=== PATIENT | female | born 1930 | race Caucasian/White ===

== ENCOUNTER 2016-05-03 08:26 | Emergency (ER) | payer MEDICARE, BC ==
[2016-05-03] MEDS ORDERED: SODIUM CHLORIDE 0.9% 500 ML IV STA (08:56)
--- NOTE | 2016-05-03 09:00 | ED ---
General Adult HPI - General Stated complaint: BLOODY DIARRHEA Time Seen by Provider: 05/03/16 08:47 Source: RN notes reviewed - History of Present Illness Initial comments: 85-year-old female presents to the emergency department with a chief complaint of coffee ground like stool. Patient states she's had this since about the first week before Chris. Patient states that is just continued to occur on and off so she was concerned. Patient denies this is the diarrhea is more often since she became even more concerned. Patient states she is on Plavix but does not know blood thinners. Patient denies any history of rectal bleeding. Patient states that she did have colonoscopy about 5 years ago. Patient denies any fever chills with this. Patient states she has cramping in the abdomen prior to the diarrhea-like episode. Patient states when she has the diarrhea she has been nauseous but she is not nauseous any other time. Patient states she was concerned due to the symptoms so she thought that she should be evaluated. Patient denies any recent fever, chills, shortness of breath, chest pain, back pain, vomiting, numbness or tingling, dysuria or hematuria, constipation, headaches or visual changes, or any other current symptoms. - Related Data Home Medications Medication Instructions Recorded Confirmed Levothyroxine Sodium [Synthroid] 175 mcg PO DAILY 09/15/13 05/03/16 Losartan/Hydrochlorothiazide 1 tab PO HS 09/15/13 05/03/16 [Hyzaar 100-12.5 Tablet] Potassium Chloride [Klor-Con 10] 10 meq PO DAILY 09/15/13 05/03/16 amLODIPine BESYLATE [Norvasc] 5 mg PO 09/15/13 05/03/16 quiNINE SULFATE [Qualaquin] 324 mg PO 09/15/13 05/03/16 Clopidogrel Bisulfate [Clopidogrel] 75 mg PO HS 11/18/13 05/03/16 Furosemide [Lasix] 20 mg PO DAILY 11/18/13 05/03/16 Rosuvastatin Calcium [Crestor] 10 mg PO HS 11/18/13 05/03/16 Metoprolol Succinate [Toprol XL] 50 mg PO HS 12/04/14 05/03/16 sitaGLIPtin [Januvia] 100 mg PO DAILY 12/04/14 05/03/16 Aspirin 81 mg PO DAILY 05/03/16 05/03/16 Desoximetasone [Topicort 0.25%] 1 spray TOPICAL DAILY PRN 05/03/16 05/03/16 Dicyclomine [Bentyl] 10 mg PO QID PRN 05/03/16 05/03/16 Fluticasone Nasal [place] [Flonase 1 spray EA NOSTRIL DAILY PRN 05/03/16 05/03/16 Nasal [place]] Glucosamine-Chondr 500-400Mg 1 tab PO DAILY 05/03/16 05/03/16 Multivitamins, Thera [Multivitamin] 1 tab PO DAILY 05/03/16 05/03/16 [place]-3 Fatty Acids/Fish Oil [Fish 4 cap PO DAILY 05/03/16 05/03/16 Oil 1,000 mg Softgel] Ubidecarenone [Co Q-10] 100 mg PO DAILY 05/03/16 05/03/16 Vitamin B Complex 1 cap PO DAILY 05/03/16 05/03/16 Previous Rx's Medication Instructions Recorded Clopidogrel [Plavix] 75 mg PO DAILY tab 12/10/14 Nitroglycerin Sl Tabs [Nitrostat] 0.4 mg SUBLINGUAL Q5M PRN #0 tab 12/10/14 Ciprofloxacin HCl [Cipro] 500 mg PO Q12HR #14 tablet 05/03/16 Allergies Allergy/AdvReac Type Severity Reaction Status Date / Time Iodinated Contrast Media - Allergy Rash/Hives Verified 05/03/16 09:11 Oral and [Iodinated Contrast Media - IV Dye] niacin Allergy Rash/Hives Verified 05/03/16 09:11 codeine AdvReac Intermediate Chest Pain Verified 05/03/16 09:11 atorvastatin AdvReac Unknown Verified 05/03/16 09:11 Review of Systems ROS Statement: Those systems with pertinent positive or pertinent negative responses have been documented in the HPI. ROS Other: All systems not noted in ROS Statement are negative. 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 TIA 08/2013. SOB w/exertion, psoriasis, aortic valve needs to be repaired in future per pt. History of Any Multi-Drug Resistant Organisms: None Reported Past Surgical History: Appendectomy, Cholecystectomy, Heart Catheterization, Hysterectomy, Orthopedic Surgery Additional Past Surgical History / Comment(s): breast biopsy left, rotator cuff right, heart cath 2 weeks ago @[facility] Past Anesthesia/Blood Transfusion Reactions: No Reported Reaction Past Psychological History: No Psychological Hx Reported Smoking Status: Never smoker Past Alcohol Use History: None Reported Past Drug Use History: None Reported - Past Family History Brother(s) Family Medical History: Cancer General Exam - General Exam Comments Initial Comments: General: The patient is awake and alert, in no distress, and does not appear acutely ill. Eye: Pupils are equal, round and reactive to light, extra-ocular movements are intact; there is normal conjunctiva bilaterally. No signs of icterus. Ears, nose, mouth and throat: There are moist mucous membranes and no oral lesions. Neck: The neck is supple, there is no tenderness. Cardiovascular: There is a regular rate and rhythm. with murmur no rub or gallop is appreciated. Respiratory: Lungs are clear to auscultation, respirations are non-labored, breath sounds are equal. No wheezes, stridor, rales, or rhonchi. Gastrointestinal: Soft, non-distended, non-tender abdomen without masses or organomegaly noted. There is no rebound or guarding present. No CVA tenderness. Bowel sounds are unremarkable. Back: There is no tenderness to palpation in the midline. There is no obvious deformity. No rashes noted. Musculoskeletal: Normal ROM, no tenderness, There is no pedal edema. There is no calf tenderness or swelling. Sensation intact. Pulses equal bilaterally 2+. Neurological: CN II-XII intact, There are no obvious motor or sensory deficits. Coordination appears grossly intact. Speech is normal. Skin: Skin is warm and dry and no rashes or lesions are noted. Psychiatric: Cooperative, appropriate mood & affect, normal judgment. Course Vital Signs 05/03/16 05/03/16 09:15 12:15 Temperature 97.2 F L 97.8 F Pulse Rate 74 71 Respiratory 18 16 Rate Blood Pressure 174/77 169/75 O2 Sat by Pulse 96 98 Oximetry Medical Decision Making - Medical Decision Making 85-year-old female presents for coffee ground diarrhea per the history. At this time the patient is fecal occult positive hard patient does not have coffee -ground emesis on physical exam. At this time the patient was unable to provide a stool sample. We did discuss that she has a stable hemoglobin stable vital signs. We did discuss that she can follow up outpatient for this. She was likely will need colonoscopy. We did discuss with Prescription for stool culture as well as a C. diff testing. We discussed that she isn't follow-up with this. We will also give a prescription for Cipro to cover for the typical causes of diarrhea to see if this helps with her symptoms. We discussed this at this after she's collected for stool sample. The patient was informed that should follow up with her doctor this week. We discussed return parameters all her questions. She stated that she understood and she is negative and the plan. Patient will be discharged home. - Lab Data Result diagrams: 05/03/16 09:44 05/03/16 09:44 Lab Results 05/03/16 05/03/16 05/03/16 Range/Units 09:44 09:44 09:44 WBC 11.3 H (3.8-10.6) k/uL RBC 3.84 (3.80-5.40) m/uL Hgb 11.5 (11.4-16.0) gm/dL Hct 35.0 (34.0-46.0) % MCV 91.0 (80.0-100.0) fL MCH 30.0 (25.0-35.0) pg MCHC 32.9 (31.0-37.0) g/dL RDW 14.2 (11.5-15.5) % Plt Count 238 (150-450) k/uL Neutrophils % 80 % Lymphocytes % 10 % Monocytes % 4 % Eosinophils % 2 % Basophils % 0 % Neutrophils # 9.0 H (1.3-7.7) k/uL Lymphocytes # 1.1 (1.0-4.8) k/uL Monocytes # 0.5 (0-1.0) k/uL Eosinophils # 0.3 (0-0.7) k/uL Basophils # 0.0 (0-0.2) k/uL PT (9.0-12.0) sec INR (<1.1) APTT (22.0-30.0) sec Sodium 138 (137-145) mmol/L Potassium 4.1 (3.5-5.1) mmol/L Chloride 99 (98-107) mmol/L Carbon Dioxide 29 (22-30) mmol/L Anion Gap 10 mmol/L BUN 18 H (7-17) mg/dL Creatinine 0.72 (0.52-1.04) mg/dL Est GFR (MDRD) Af Amer >60 (>60 ml/min/1.73 sqM) Est GFR (MDRD) Non-Af >60 (>60 ml/min/1.73 sqM) Glucose 130 H (74-99) mg/dL Plasma Lactic Acid Alexy (0.7-2.0) mmol/L Calcium 9.5 (8.4-10.2) mg/dL Total Bilirubin 0.6 (0.2-1.3) mg/dL AST 26 (14-36) U/L ALT 32 (9-52) U/L Alkaline Phosphatase 74 (38-126) U/L Total Creatine Kinase 35 (30-135) U/L CK-MB (CK-2) 0.6 (0.0-2.4) ng/mL CK-MB (CK-2) Rel Index 1.7 Troponin I <0.012 (0.000-0.034) ng/mL Total Protein 6.5 (6.3-8.2) g/dL Albumin 4.0 (3.5-5.0) g/dL Urine Color Urine Appearance (Clear) Urine pH (5.0-8.0) Ur Specific [place] (1.001-1.035) Urine Protein (Negative) Urine Glucose (UA) (Negative) Urine Ketones (Negative) Urine Blood (Negative) Urine Nitrate (Negative) Urine Bilirubin (Negative) Urine Urobilinogen (<2.0) mg/dL Ur Leukocyte Esterase (Negative) Urine RBC (0-5) /hpf Urine WBC (0-5) /hpf Ur Squamous Epith Cells (0-4) /hpf Urine Bacteria (None) /hpf Hyaline Casts (0-2) /lpf Urine Mucus (None) /hpf Stool Occult Blood (Negative) Blood Type Blood Type Confirm Blood Type Recheck Antibody Screen Spec Expiration Date 05/03/16 05/03/16 05/03/16 Range/Units 09:44 09:44 09:44 WBC (3.8-10.6) k/uL RBC (3.80-5.40) m/uL Hgb (11.4-16.0) gm/dL Hct (34.0-46.0) % MCV (80.0-100.0) fL MCH (25.0-35.0) pg MCHC (31.0-37.0) g/dL RDW (11.5-15.5) % Plt Count (150-450) k/uL Neutrophils % % Lymphocytes % % Monocytes % % Eosinophils % % Basophils % % Neutrophils # (1.3-7.7) k/uL Lymphocytes # (1.0-4.8) k/uL Monocytes # (0-1.0) k/uL Eosinophils # (0-0.7) k/uL Basophils # (0-0.2) k/uL PT (9.0-12.0) sec INR (<1.1) APTT 29.1 (22.0-30.0) sec Sodium (137-145) mmol/L Potassium (3.5-5.1) mmol/L Chloride (98-107) mmol/L Carbon Dioxide (22-30) mmol/L Anion Gap mmol/L BUN (7-17) mg/dL Creatinine (0.52-1.04) mg/dL Est GFR (MDRD) Af Amer (>60 ml/min/1.73 sqM) Est GFR (MDRD) Non-Af (>60 ml/min/1.73 sqM) Glucose (74-99) mg/dL Plasma Lactic Acid Alexy 1.0 (0.7-2.0) mmol/L Calcium (8.4-10.2) mg/dL Total Bilirubin (0.2-1.3) mg/dL AST (14-36) U/L ALT (9-52) U/L Alkaline Phosphatase (38-126) U/L Total Creatine Kinase (30-135) U/L CK-MB (CK-2) (0.0-2.4) ng/mL CK-MB (CK-2) Rel Index Troponin I (0.000-0.034) ng/mL Total Protein (6.3-8.2) g/dL Albumin (3.5-5.0) g/dL Urine Color Urine Appearance (Clear) Urine pH (5.0-8.0) Ur Specific [place] (1.001-1.035) Urine Protein (Negative) Urine Glucose (UA) (Negative) Urine Ketones (Negative) Urine Blood (Negative) Urine Nitrate (Negative) Urine Bilirubin (Negative) Urine Urobilinogen (<2.0) mg/dL Ur Leukocyte Esterase (Negative) Urine RBC (0-5) /hpf Urine WBC (0-5) /hpf Ur Squamous Epith Cells (0-4) /hpf Urine Bacteria (None) /hpf Hyaline Casts (0-2) /lpf Urine Mucus (None) /hpf Stool Occult Blood (Negative) Blood Type A Negative Blood Type Confirm Blood Type Recheck CABO Indicated Antibody Screen NEGATIVE Spec Expiration Date 05/06/2016 - 234305/03/16 05/03/16 05/03/16 Range/Units 09:44 11:27 11:27 WBC (3.8-10.6) k/uL RBC (3.80-5.40) m/uL Hgb (11.4-16.0) gm/dL Hct (34.0-46.0) % MCV (80.0-100.0) fL MCH (25.0-35.0) pg MCHC (31.0-37.0) g/dL RDW (11.5-15.5) % Plt Count (150-450) k/uL Neutrophils % % Lymphocytes % % Monocytes % % Eosinophils % % Basophils % % Neutrophils # (1.3-7.7) k/uL Lymphocytes # (1.0-4.8) k/uL Monocytes # (0-1.0) k/uL Eosinophils # (0-0.7) k/uL Basophils # (0-0.2) k/uL PT 11.4 (9.0-12.0) sec INR 1.1 (<1.1) APTT (22.0-30.0) sec Sodium (137-145) mmol/L Potassium (3.5-5.1) mmol/L Chloride (98-107) mmol/L Carbon Dioxide (22-30) mmol/L Anion Gap mmol/L BUN (7-17) mg/dL Creatinine (0.52-1.04) mg/dL Est GFR (MDRD) Af Amer (>60 ml/min/1.73 sqM) Est GFR (MDRD) Non-Af (>60 ml/min/1.73 sqM) Glucose (74-99) mg/dL Plasma Lactic Acid Alexy (0.7-2.0) mmol/L Calcium (8.4-10.2) mg/dL Total Bilirubin (0.2-1.3) mg/dL AST (14-36) U/L ALT (9-52) U/L Alkaline Phosphatase (38-126) U/L Total Creatine Kinase (30-135) U/L CK-MB (CK-2) (0.0-2.4) ng/mL CK-MB (CK-2) Rel Index Troponin I (0.000-0.034) ng/mL Total Protein (6.3-8.2) g/dL Albumin (3.5-5.0) g/dL Urine Color Yellow Urine Appearance Clear (Clear) Urine pH 5.5 (5.0-8.0) Ur Specific [place] 1.009 (1.001-1.035) Urine Protein Negative (Negative) Urine Glucose (UA) Negative (Negative) Urine Ketones Negative (Negative) Urine Blood Negative (Negative) Urine Nitrate Negative (Negative) Urine Bilirubin Negative (Negative) Urine Urobilinogen <2.0 (<2.0) mg/dL Ur Leukocyte Esterase Moderate H (Negative) Urine RBC 1 (0-5) /hpf Urine WBC 5 (0-5) /hpf Ur Squamous Epith Cells 1 (0-4) /hpf Urine Bacteria Occasional H (None) /hpf Hyaline Casts 1 (0-2) /lpf Urine Mucus Rare H (None) /hpf Stool Occult Blood Positive H (Negative) Blood Type Blood Type Confirm Blood Type Recheck Antibody Screen Spec Expiration Date 05/03/16 Range/Units 11:39 WBC (3.8-10.6) k/uL RBC (3.80-5.40) m/uL Hgb (11.4-16.0) gm/dL Hct (34.0-46.0) % MCV (80.0-100.0) fL MCH (25.0-35.0) pg MCHC (31.0-37.0) g/dL RDW (11.5-15.5) % Plt Count (150-450) k/uL Neutrophils % % Lymphocytes % % Monocytes % % Eosinophils % % Basophils % % Neutrophils # (1.3-7.7) k/uL Lymphocytes # (1.0-4.8) k/uL Monocytes # (0-1.0) k/uL Eosinophils # (0-0.7) k/uL Basophils # (0-0.2) k/uL PT (9.0-12.0) sec INR (<1.1) APTT (22.0-30.0) sec Sodium (137-145) mmol/L Potassium (3.5-5.1) mmol/L Chloride (98-107) mmol/L Carbon Dioxide (22-30) mmol/L Anion Gap mmol/L BUN (7-17) mg/dL Creatinine (0.52-1.04) mg/dL Est GFR (MDRD) Af Amer (>60 ml/min/1.73 sqM) Est GFR (MDRD) Non-Af (>60 ml/min/1.73 sqM) Glucose (74-99) mg/dL Plasma Lactic Acid Alexy (0.7-2.0) mmol/L Calcium (8.4-10.2) mg/dL Total Bilirubin (0.2-1.3) mg/dL AST (14-36) U/L ALT (9-52) U/L Alkaline Phosphatase (38-126) U/L Total Creatine Kinase (30-135) U/L CK-MB (CK-2) (0.0-2.4) ng/mL CK-MB (CK-2) Rel Index Troponin I (0.000-0.034) ng/mL Total Protein (6.3-8.2) g/dL Albumin (3.5-5.0) g/dL Urine Color Urine Appearance (Clear) Urine pH (5.0-8.0) Ur Specific [place] (1.001-1.035) Urine Protein (Negative) Urine Glucose (UA) (Negative) Urine Ketones (Negative) Urine Blood (Negative) Urine Nitrate (Negative) Urine Bilirubin (Negative) Urine Urobilinogen (<2.0) mg/dL Ur Leukocyte Esterase (Negative) Urine RBC (0-5) /hpf Urine WBC (0-5) /hpf Ur Squamous Epith Cells (0-4) /hpf Urine Bacteria (None) /hpf Hyaline Casts (0-2) /lpf Urine Mucus (None) /hpf Stool Occult Blood (Negative) Blood Type Blood Type Confirm A Negative Blood Type Recheck Antibody Screen Spec Expiration Date Disposition Clinical Impression: Diarrhea, Positive occult stool blood test Disposition: HOME SELF-CARE Condition: Stable Instructions: Acute Diarrhea (ED) Additional Instructions: Please use medication as discussed. Please follow up with family doctor if symptoms have not improved over the next two days. Please return to the emergency room if your symptoms increase or worsen or for any other concerns. Please return in your stool culture and collected prior to starting the antibiotics. Prescriptions: Ciprofloxacin HCl [Cipro] 500 mg PO Q12HR #14 tablet Referrals: rTacey Zayas DO [Primary Care Provider] - 1-2 days Time of Disposition: 12:27
[2016-05-03 09:55] LABS: Basophils % (A) 0 %; CH 30.2; CHCM 33.4; Eosinophils # (A) 0.3 k/uL (0-0.7); Eosinophils % (A) 2 %; HDW 2.39; HGB 11.5 gm/dL (11.4-16.0); Luc # (Auto) 0.38; Luc % (Auto) 3; Lymphocytes # (A) 1.1 k/uL (1.0-4.8); Lymphocytes % (A) 10 %; MCHC 32.9 g/dL (31.0-37.0); Mean Platelet Volume 6.7; Monocytes # (A) 0.5 k/uL (0-1.0); Monocytes % (A) 4 %; Neutrophils % (A) 80 %; RBC 3.84 m/uL (3.80-5.40); RDW 14.2 % (11.5-15.5); WBC 11.3 k/uL (3.8-10.6); WBC (Perox) 11.78
[2016-05-03 10:11] LABS: ALT 32 U/L (9-52); AST 26 U/L (14-36); Alkaline Phosphatase 74 U/L (38-126); Anion Gap 10 mmol/L; Blood Urea Nitrogen 18 mg/dL (7-17); Calcium 9.5 mg/dL (8.4-10.2); Carbon Dioxide 29 mmol/L (22-30); Chloride 99 mmol/L (98-107); Glucose 130 mg/dL (74-99); Non-African American GFR(MDRD) >60 (>60 ml/min/1.73 sqM); Potassium 4.1 mmol/L (3.5-5.1); Sodium 138 mmol/L (137-145); Total Bilirubin 0.6 mg/dL (0.2-1.3); Total Protein 6.5 g/dL (6.3-8.2)
[2016-05-03 10:17] LABS: Creatine Kinase 35 U/L (30-135)
[2016-05-03 10:30] LABS: Creatine Kinase MB 0.6 ng/mL (0.0-2.4); Troponin I <0.012 ng/mL (0.000-0.034)
[2016-05-03 10:52] LABS: INR 1.1 (<1.1); Prothrombin Time 11.4 sec (9.0-12.0)
[2016-05-03 12:00] LABS: Appearance,Urine Clear (Clear); Bacteria,Urine Occasional /hpf; Bilirubin,Urine Negative (Negative); Glucose,Urine (UA) Negative (Negative); Ketones,Urine Negative (Negative); Leukocyte Esterase,Urine Moderate (Negative); Mucus,Urine Rare /hpf; Nitrite,Urine Negative (Negative); PH, Urine 5.5 (5.0-8.0); Particle Count 1411; Protein,Urine Negative (Negative); RBC,Urine 1 /hpf (0-5); Specific Gravity,Urine 1.009 (1.001-1.035); Squamous Epithelial Cell,Urine 1 /hpf (0-4); UA Billing (MACRO vs. MICRO) MICRO; Urobilinogen,Urine <2.0 mg/dL (<2.0); WBC,Urine 5 /hpf (0-5)
[2016-05-03 12:43] VITALS: BP 160/67; PULSE 72; RESP 18; TEMP 97.1
== END 2016-05-03 12:43 | disposition home or self-care (01) ==
LOC: EC 08:26
DX: K92.1 Melena (principal); I10 Essential (primary) hypertension; I25.10 Atherosclerotic heart disease of native coronary artery without angina pectoris; E07.9 Disorder of thyroid, unspecified; M19.90 Unspecified osteoarthritis, unspecified site; E78.5 Hyperlipidemia, unspecified; E11.9 Type 2 diabetes mellitus without complications; Z88.5 Allergy status to narcotic agent; Z88.8 Allergy status to other drugs, medicaments and biological substances; Z79.02 Long term (current) use of antithrombotics/antiplatelets; Z91.041 Radiographic dye allergy status; Z79.84 Long term (current) use of oral hypoglycemic drugs; Z79.82 Long term (current) use of aspirin; Z98.61 Coronary angioplasty status; Z86.73 Personal history of transient ischemic attack (TIA), and cerebral infarction without residual deficits; Z79.899 Other long term (current) drug therapy
CPT/HCPCS: 36415; 80053; 81001; 82272; 82550; 82553; 83605; 84484; 85025; 85610; 85730; 86850; 86900; 86901; 87077; 87086; 87186; 96360; 99284

== ENCOUNTER → 2016-08-13 | Outpatient (CLI) | payer MEDICARE, BC ==
--- NOTE | 2016-08-13 10:31 | BD ---
EXAMINATION TYPE: MG DEXA axial skeleton. DATE OF EXAM: 08/13/2016 10:05 AM COMPARISON: Previous study dated 08/16/2013. CLINICAL HISTORY: Height: 63.5 Weight: 183.7 FRAX RISK QUESTIONS: Alcohol (3 or more units per day): no Family History (Parent hip fracture): yes /mother Glucocorticoids (More than 3mos): no (Ex: prednisone, prednisolone, methylprednisolone, dexamethasone, and hydrocortisone). History of Fracture in Adulthood: no Secondary Osteoporosis: 1. Type 1 Diabetes: no 2. Hyperthyroidism: no 3. Menopause before 45: no 4. Malnutrition: no 5. Chronic liver disease: no Rheumatoid Arthritis: no Current Tobacco Use: no RISK FACTORS HISTORY OF: Hip Fracture (Right/Left): no Spine Fracture: no History of Wrist Fracture: no Surgery to Spine/Hip(right/left)/Wrist (right/left): no Family History of Osteoporosis: yes Active: no Diet low in dairy products/other sources of calcium: yes Postmenopausal woman: age 52 Lost more than 2 inches in height since high school: no Frequent falls: no Poor Health: no Adrenal Insufficiency: no MEDICATIONS: diabetic meds, blood pressure, cholesterol meds Thyroid Medications: thyroxine How Long: since age 34 EXAM MEASUREMENTS: Bone mineral densitometry was performed using the [employer] System. Bone mineral density as measured about the Lumbar spine is: ----- L1-L4(G/cm2): 1.479 T Score Values are as follows: ----- L2: 1.9 ----- L3: 1.8 ----- L4: 4.6 ----- L1-L4: 2.5 Bone mineral density has: decreased -2.6 % since study of: 08.16.2013 Bone mineral density about the R hip (g/cm2): 0.999 Bone mineral density about the L hip (g/cm2): 0.954 T Score values are as follows: -----R Neck: -0.3 -----L Neck: -0.6 -----R Intertrochanter: 0.2 -----L Intertrochanter: 0.7 Bone mineral density has: decreased -2.6 % since study of: 08.16.2013 Spine measurement should be ignored due to a moderately severe levorotoscoliosis. IMPRESSION: NORMAL. MAJOR OSTEOPOROTIC FRACTURE RISK: 9.8% HIP FRACTURE RISK: 1.8% NOTE: T-SCORE=SD OF THE YOUNG ADULT MEAN.
--- NOTE | 2016-08-17 08:07 | MM ---
Reason for exam: screening (asymptomatic). Last mammogram was performed 3 years ago. History: Patient is postmenopausal. 3 excisional biopsies of the left breast. Physical Findings: A clinical breast exam by your physician is recommended on an annual basis and results should be correlated with mammographic findings. MG Screening Mammo w CAD Bilateral CC and MLO view(s) were taken. Prior study comparison: August 16, 2013, CAD bilateral diagnostic mammogram. August 25, 2011, [facility] DIGITAL RIGHT MAMMOGRAM w/CAD. August 04, 2011, bilateral digital screening mammo w/CAD. May 12, 2010, bilateral digital screening mammogram. The breast tissue is heterogeneously dense. This may lower the sensitivity of mammography. Global asymmetry in the right breast is unchanged. No significant changes when compared with prior studies. ASSESSMENT: Negative, BI-RAD 1 RECOMMENDATION: Routine screening mammogram of both breasts in 1 year.
== END | disposition home or self-care (01) ==
LOC: RADMAMWWP 09:06
PROVIDERS: ATTEND Family Medicine
DX: Z12.31 Encounter for screening mammogram for malignant neoplasm of breast (principal); Z13.820 Encounter for screening for osteoporosis
CPT/HCPCS: 77080; G0202